=== PATIENT | male | born 2000 | race Caucasian/White ===

== ENCOUNTER 2023-06-14 19:45 | Emergency (ER) | payer SELFPAY ==
[2023-06-14] MEDS: Tetracaine HCl/PF 0.5% 4 ML Bottle EYERT ONE (20:08)
[2023-06-14] MEDS: Fluorescein 1 MG Ophth Strip EYELF ONE (20:09)
[2023-06-14] MEDS: Ofloxacin 0.3% Ophth Soln 5 ML Bottle EYELF ONE (20:32)
== END 2023-06-14 21:05 | disposition home or self-care (01) ==
LOC: JD.ED 19:45
DX: S05.02XA Injury of conjunctiva and corneal abrasion without foreign body, left eye, initial encounter (principal); H10.32 Unspecified acute conjunctivitis, left eye; W45.8XXA Other foreign body or object entering through skin, initial encounter
CPT/HCPCS: 99283; A9270-GY; J3490

== ENCOUNTER 2025-02-23 00:10 | Emergency (ER) | payer OTHER ==
[2025-02-23] MEDS: Fluorescein 1 MG Ophth Strip EYERT ONE (01:55)
== END 2025-02-23 01:55 | disposition home or self-care (01) ==
LOC: JD.ED 00:10
DX: T15.01XA Foreign body in cornea, right eye, initial encounter (principal); W44.8XXA Other foreign body entering into or through a natural orifice, initial encounter; Y99.0 Civilian activity done for income or pay
CPT/HCPCS: 65220; 99283; A9270; J3490